=== PATIENT | female | born 1945 | race Caucasian/White ===

== ENCOUNTER 2021-06-02 10:12 | Inpatient (IN) | payer MEDICARE ==
[2021-06-02 10:43] LABS: #Eosinphils 0.4 thou/uL (0.0-0.7); #Lymphocytes 2.4 thou/uL (1.20-3.40); #Monocytes 0.6 thou/uL (0.11-0.59); #Neutrophils 6.6 thou/uL (1.40-6.50); %Basophils 0.4 % (0.0-1.0); %Eosinophils 3.8 % (0.0-10.0); %Monocytes 5.9 % (0.0-10.0); %Neutrophils 65.9 % (42.0-75.0); Hemoglobin 13.1 g/dL (12.0-16.0); Mean Corpuscular HGB CONC 31.8 g/dL (32.0-36.0); Mean Corpuscular Hemoglobin 32.4 pg (27.0-31.0); Mean Platelet Volume 6.1 fL (7.4-10.4); Platelet Count 535 thou/uL (130-400); RBC Distribution Width 11.7 % (11.5-14.5); Red Blood Cell (RBC) Count 4.05 mill/uL (4.20-5.40); White Blood Cell (WBC) Count 10.1 thou/uL (4.8-10.8)
[2021-06-02 10:55] LABS: PTT 31.8 sec (22.9-36.1)
[2021-06-02 10:58] LABS: INR-International Normal Ratio 0.9; Prothrombin Time 12.6 sec (12.0-14.7)
[2021-06-02 11:02] LABS: ALT (SGPT) 13 U/L (8-55); AST (SGOT) 14 U/L (5-34); Albumin 4.3 g/dL (3.4-4.8); Alkaline Phosphatase 63 U/L (40-110); Anion Gap 15 mmol/L (10-20); BUN (Urea Nitrogen) 20 mg/dL (9.8-20.1); Bilirubin, Total 0.4 mg/dL (0.2-1.2); CK (CPK) 80 U/L (29-168); Calc. Creatinine Clearance 0 mL/min (70-130); Calcium 9.7 mg/dL (7.8-10.44); Carbon Dioxide 24 mmol/L (23-31); Chloride 104 mmol/L (98-107); Globulin 3.2 g/dL (2.4-3.5); Glucose 143 mg/dL (83-110); Potassium 4.3 mmol/L (3.5-5.1); Protein, Total 7.5 g/dL (5.8-8.1); Sodium 139 mmol/L (136-145)
[2021-06-02] MEDS ORDERED: Aspirin Chewable 81 MG TAB ONE (11:14)
[2021-06-02 11:23] LABS: CKMB 1.4 ng/mL (0-6.6)
[2021-06-02] MEDS ORDERED: hydrALAZINE 20 MG/ML VIAL SLOW IVP PRN (12:11)
[2021-06-02] MEDS ORDERED: Acetaminophen 325 MG TAB PO PRN (12:13)
[2021-06-02] MEDS ORDERED: Ondansetron PF 4 MG/2 ML Vial IVP PRN (12:13)
[2021-06-02] MEDS ORDERED: Senokot S 8.6-50 MG TAB PO PRN (12:13)
[2021-06-02] MEDS ORDERED: Calcium Carbonate 500 MG ChewTAB PO PRN (12:13)
[2021-06-02] MEDS ORDERED: Ondansetron ODT 4 MG TAB PO PRN (12:13)
[2021-06-02] MEDS ORDERED: Sodium Chloride 0.9% 1,000 ML IV SCH (12:15)
[2021-06-02 13:55] VITALS: BMI 33.5
[2021-06-02 14:58] LABS: CKMB 1.2 ng/mL (0-6.6)
[2021-06-02 16:07] LABS: SARS-CoV-2 PCR by NAA Not Detected (NotDetected)
[2021-06-02] MEDS: Enoxaparin Sodium 40 MG/0.4 ML SYRINGE SC SCH (20:46)
[2021-06-02] MEDS: Atorvastatin Calcium 40 MG TAB PO SCH (20:46)
[2021-06-03 04:40] LABS: Cardiac Risk 3.4 (Less than 4.5)
[2021-06-03] MEDS: Aspirin 325 mg Enteric Coated Tablet PO SCH (08:12)
[2021-06-03] MEDS: Enoxaparin Sodium 40 MG/0.4 ML SYRINGE SC SCH (20:34)
[2021-06-03] MEDS: Atorvastatin Calcium 40 MG TAB PO SCH (20:36)
[2021-06-04] MEDS: Aspirin 325 mg Enteric Coated Tablet PO SCH (10:28)
[2021-06-04] MEDS ORDERED: Lidocaine 1% MPF 2 ML VIAL ONE (11:49)
[2021-06-04] MEDS ORDERED: Heparin 5,000 UNITS/ML VIAL ONE (12:16)
[2021-06-04] MEDS ORDERED: EPINEPHrine 1 MG/ML AMP ONE (12:16)
[2021-06-04] MEDS ORDERED: Bupivacaine PF 0.5% 30 ML VIAL ONE (12:16)
[2021-06-04] MEDS ORDERED: Protamine Sulfate 50 MG/5 ML VIAL ONE (12:17)
[2021-06-04] MEDS ORDERED: Fentanyl 100 MCG/2 ML VIAL ONE (12:31)
[2021-06-04] MEDS ORDERED: Midazolam HCl 2 mg/2 ml Vial ONE (12:37)
[2021-06-04] MEDS ORDERED: Levofloxacin 500 mg/D5W 100 ml Premix Bag ONE (12:49)
[2021-06-04 17:22] VITALS: BP 137/62
[2021-06-04] MEDS ORDERED: traMADol HCl 50 MG TAB PO PRN (19:55)
[2021-06-04] MEDS ORDERED: Nitroglycerin 50 MG/250 ML BOT 250 ML IVPB PRN (19:55)
[2021-06-04] MEDS ORDERED: Ondansetron PF 4 MG/2 ML Vial IVP PRN (19:55)
[2021-06-04] MEDS ORDERED: Fentanyl 100 MCG/2 ML VIAL SLOW IVP PRN ×2 (19:55)
[2021-06-04] MEDS ORDERED: Phenylephrine 40 MG in Sodium Chloride 0.9% 250 ML 250 ML IVPB PRN (19:55)
[2021-06-04] MEDS ORDERED: Sodium Chloride 0.9% 1,000 ML IV SCH (19:55)
[2021-06-04] MEDS: Atorvastatin Calcium 40 MG TAB PO SCH (20:43)
[2021-06-05 08:54] VITALS: TEMP 98.3
[2021-06-05] MEDS ORDERED: Aspirin Chewable 81 MG TAB PO SCH (09:00)
[2021-06-06] MEDS ORDERED: Lidocaine 5% Patch TD SCH (09:00)
[2021-06-06] MEDS ORDERED: Transdermal Patch Removal TOP SCH (21:00)
== END 2021-06-05 11:42 | disposition home or self-care (01) | DRG 38 ==
LOC: ERS 10:12 → 2SW 11:29 → OBSVTOIN 17:55 → CCU 06-04 15:31
PROVIDERS: ADMIT Internal Medicine; ATTEND Internal Medicine
PROC: 03CL0ZZ Extirpation of Matter from Left Internal Carotid Artery, Open Approach (ICD-10-PCS; principal; 2021-06-04)
PROC: 03UL0KZ Supplement Left Internal Carotid Artery with Nonautologous Tissue Substitute, Open Approach (ICD-10-PCS; 2021-06-04)
DX: I63.9 Cerebral infarction, unspecified (principal); G81.91 Hemiplegia, unspecified affecting right dominant side; Z20.822 Contact with and (suspected) exposure to COVID-19; I77.1 Stricture of artery; I65.23 Occlusion and stenosis of bilateral carotid arteries; D75.89 Other specified diseases of blood and blood-forming organs; G89.29 Other chronic pain; I10 Essential (primary) hypertension; E78.5 Hyperlipidemia, unspecified; E78.00 Pure hypercholesterolemia, unspecified; M54.9 Dorsalgia, unspecified; Z96.652 Presence of left artificial knee joint; Z79.82 Long term (current) use of aspirin; Z79.899 Other long term (current) drug therapy; Z79.02 Long term (current) use of antithrombotics/antiplatelets; Z88.0 Allergy status to penicillin; Z82.49 Family history of ischemic heart disease and other diseases of the circulatory system; Z85.42 Personal history of malignant neoplasm of other parts of uterus; Z90.710 Acquired absence of both cervix and uterus
CPT/HCPCS: 36415; 36416; 70450; 70496; 70498; 70551; 71045; 80053; 80061; 82550; 82553; 82607; 82746; 83605; 84443; 84484; 85025; 85610; 85730; 86850; 86900; 86901; 93005; 93306; 93880; C1768; C1776; G0378; J0171; J1642; J1644; J1650; J1956; J2250; J2720; J3010; J7050; S0020; U0003; U0005

== ENCOUNTER 2021-06-18 11:17 | Outpatient (CLI) | payer MEDICARE | END 2021-06-18 11:18 | disposition home or self-care (01) | LOC: TBSIIMAG 11:17 | PROVIDERS: ATTEND Neurological Surgery | DX: M51.16 Intervertebral disc disorders with radiculopathy, lumbar region (principal); M51.15 Intervertebral disc disorders with radiculopathy, thoracolumbar region; M48.061 Spinal stenosis, lumbar region without neurogenic claudication | CPT/HCPCS: 72148 ==